=== PATIENT | female | born 2000 | race Caucasian/White ===

== ENCOUNTER → 2022-11-18 11:24 | Outpatient (BNVA) | payer MEDICAID, SELFPAY | PROVIDERS: PCP Physician Assistant; Visit Provider Internal Medicine | DX: R79.89 Other specified abnormal findings of blood chemistry (principal); K21.9 Gastro-esophageal reflux disease without esophagitis; N10 Acute pyelonephritis; R79.82 Elevated C-reactive protein (CRP); R76.8 Other specified abnormal immunological findings in serum | CPT/HCPCS: 36415; 80053; 82550; 83516; 85025; 85651; 86140; 86160; 86162; 86200; 86235; 86255; 86376; 86431; 86704; 86803; 87340 ==